=== PATIENT | female | born 1940 | race Caucasian/White ===

== ENCOUNTER 2017-08-21 17:21 | Emergency (ER) | payer MEDICARE, BC ==
--- NOTE | 2017-08-21 17:40 | Emergency Department Record ---
History of Present Illness - General Chief complaint: Extremity Problem Stated complaint: INDEX FINGER LEFT LAC Source: Patient Mode of Arrival: Ambulatory Limitations: No limitations - History of Present Illness Initial comments: 76 yo female presents with a left index finger injury. She was putting a bird feeder together and pinched her finger. She has a flap like injury to the left index finger. She has full ROM and sensation. She thinks her last tetanus was about 5 years ago. No other recent illnesses. She clean the finger with warm water and soap. MD Complaint: Extremity pain -: Hour(s) Location: Left, Hand History of Same: No Radiation: Distal Quality: Aching Consistency: Constant Improves with: Elevation Worsens with: Nothing - Related Data Home Medications Medication Instructions Recorded Confirmed Last Taken Aspirin 81 mg PO DAILY 08/21/17 08/21/17 08/21/17 Atorvastatin Calcium 10 mg PO DAILY 08/21/17 08/21/17 08/20/17 Levothyroxine Sodium [Synthroid] 125 mcg PO DAILY 08/21/17 08/21/17 08/20/17 Lisinopril 20 mg PO DAILY 08/21/17 08/21/17 08/20/17 Omeprazole 20 mg PO DAILY 08/21/17 08/21/17 08/21/17 Venlafaxine HCl [Effexor Xr] 150 mg PO DAILY 08/21/17 08/21/17 08/20/17 Allergies Allergy/AdvReac Type Severity Reaction Status Date / Time No Known Drug Allergies Allergy Verified 08/21/17 17:25 Review of Systems Constitutional: Denies: Chills, Fever, Malaise, Weakness Eyes: Denies: Eye discharge ENT: Denies: Congestion, Throat pain Respiratory: Denies: Cough Cardiovascular: Denies: Chest pain, Syncope Endocrine: Denies: Fatigue Gastrointestinal: Denies: Diarrhea, Nausea, Vomiting Genitourinary: Denies: Dysuria Musculoskeletal: Denies: Arthralgia, Myalgia Skin: Denies: Bruising, Change in color, Rash Neurological: Denies: Headache, Vertigo Psychiatric: Denies: Anxiety Hematological/Lymphatic: Denies: Blood Clots, Easy bleeding, Easy bruising Physical Exam - General General Appearance: Alert, Oriented x3, Cooperative Limitations: No limitations - Head Head exam: Atraumatic, Normal inspection - Eye Eye exam: Normal appearance. negative: Conjunctival injection, Scleral icterus - ENT ENT exam: Normal exam Ear exam: Normal external inspection Nasal Exam: Normal inspection Mouth exam: Normal external inspection - Neck Neck exam: Normal inspection - Cardiovascular Peripheral Pulses: 2+: Radial (L) - Rectal Rectal exam: Deferred - exam: Deferred - Extremities Extremities exam: Full ROM, Normal capillary refill. negative: Normal inspection, Joint swelling, Tenderness Image of Hand: 1 - 1cm flaplike laceration to the lift index finger - Neurological Neurological exam: Alert. negative: Motor sensory deficit - Psychiatric Psychiatric exam: negative: Agitated, Anxious - Skin Skin exam: Dry, Normal color, Warm, Other (finger laceration) Course - Reevaluation(s) Reevaluation #1: 08/21/17 17:42 Procedure Finger laceration Betadine prep NS irrigation Benzoine to edges Steristrips placed I explained the flap is very superficial. There is a chance the finger may not heal due to the superficial nature of the wound. She will need to return or follow up to recheck the progress of healing. Disposition Disposition: Discharge Clinical Impression: Finger laceration Disposition: Home, Self-Care Condition: (1) Good Instructions: Steristrips (ED) Additional Instructions: Return if you have any concerns about the ongoing healing of the finger The strips will need to be kept dry and clean Use the tube gauze to protect your finger and remind you not to bend the finger. Forms: Patient Portal Access Time of Disposition: 07:07 Quality - Quality Measures Quality Measures: N/A - Blood Pressure Screening Does Patient Have Any of the Following: No Blood Pressure Classification: Normal BP Reading Systolic Measurement: 104 Diastolic Measurement: 70 Screening for High Blood Pressure: < Normal BP, F/U Not Required > [G8783]
[2017-08-21] MEDS ORDERED: Diph,Pert(Acell),Tet Vac 0.5 ML SYR IM ONE (17:45)
== END 2017-08-21 18:25 | disposition home or self-care (01) ==
LOC: ER 17:21
DX: S61.211A Laceration without foreign body of left index finger without damage to nail, initial encounter (principal); W23.0XXA Caught, crushed, jammed, or pinched between moving objects, initial encounter
CPT/HCPCS: 90715; 96372; 99283